=== PATIENT | female | born 1985 | race Caucasian/White ===

== ENCOUNTER 2020-02-14 08:49 | Emergency (ER) | payer BC ==
[~2020-02-14] VITALS: Ht 157.5 cm; Wt 84.0 kg
[2020-02-14 09:00] VITALS: BP 134/94
== END 2020-02-14 09:52 | disposition home or self-care (01) ==
LOC: ER 08:49
DX: G43.909 Migraine, unspecified, not intractable, without status migrainosus (principal); Z90.49 Acquired absence of other specified parts of digestive tract; Z98.890 Other specified postprocedural states
CPT/HCPCS: 81025; 99282